=== PATIENT | male | born 1960 | race Caucasian/White ===

== ENCOUNTER 2016-11-04 11:36 | Emergency (ER) | payer MEDICAID ==
[~2016-11-04] VITALS: Wt 105.0 kg
[2016-11-04] MEDS ORDERED: SOD CHLORIDE 0.9% 1,000 ML IV STA (11:57)
[2016-11-04] MEDS ORDERED: DIPHTH/TET/ACEL PERTUSS (ADULT) 0.5 ML VIAL IM* ONE (12:00)
--- NOTE | 2016-11-04 13:04 | RADRPT ---
PROCEDURE: CT Brain without contrast. CLINICAL INDICATION: Trauma. TECHNIQUE: CT scan of the brain was performed on a multidetector high-resolution CT scan. Axial im aging was obtained of the brain without contrast administration. Coronal and sagittal reformatted i mages were obtained from the axial source images. Standard CT scan of the head without contrast prot ocols were performed. The total exam CTDI equals 45.01 mGy and the total exam DLP equals 810.25 mGy-cm. One or more of the following dose reduction techniques were used: - Automated exposure control. - Adjustment of the mA and/or kV according to patient size. Use of iterative reconstruction technique. COMPARISON: None. FINDINGS: Note that there is a large region of artifact extending through the mid to superior brain precluding optimal evaluation. Recommend repeat CT head without contrast for further evaluation. Note that the ventricular system and peripheral CSF spaces that can be clearly visualized are unremarkable. No ev idence of intracranial masses or hemorrhages with those portions of the brain that can be clearly vi sualized. Jc-white matter junction is unremarkable. There is chronic bilateral ethmoid , sphenoid and left frontal sinus disease. The mastoids are unremarkable. The bones of the calvarium are intact . IMPRESSION: 1. Extensive band artifact extending through the mid to superior brain precluding optimal evaluatio n. Recommend repeat CT head without contrast for further evaluation. 2. Those portions of the brain that can be clearly visualized demonstrate no evidence of intracrani al masses hemorrhages or midline shift. Addendum: Dr. Martino was telephoned this results on 11/04/2016 at 1255 hours. RPTAT:AAJJ Physician Jonathan Date Time Electronically viewed and signed by Physician Jonathan on 11/04/2016 13:04 BM/
--- NOTE | 2016-11-04 13:16 | RADRPT ---
PROCEDURE: CT cervical spine without contrast. CLINICAL INDICATION: Trauma TECHNIQUE: Axial imaging was obtained through the cervical spine using a multi-slice CT scanner. [facility] CT scan of the cervical spine without contrast protocols were performed. CTDI: 22.2 and DLP: 475.79. One or more of the following dose reduction techniques were used: - Automated exposure control. - Adjustment of the mA and/or kV according to patient size. Use of iterative reconstruction technique. COMPARISON: None. FINDINGS: There is no evidence of acute fractures or subluxations. The bony mineralization is normal. No focal bony blastic or lytic lesions. Posterior elements are intact. There is mild degenerate disease is C 3-4, moderate degenerate disease of the C4-5 and moderate to severe degenerate disease C5-6, C6-7, C 7-T1 and T1-T2 disc levels. There is degenerative enthesopathy involving the C3-T1 vertebral levels. There is osteophyte extending off the posterior superior C4 vertebral body impressing adjacent thec al sac and resulting in moderate central spinal canal stenosis. At the C3-4 and C4-5 disc level ther e is mild central spinal canal stenosis. At the C5-6 and C6-7 disc level there is moderate central s anthony canal stenosis. There is bilateral C3-4 through C6-7 neural foraminal narrowing. There is no e vidence of prevertebral soft tissue swelling. Those portions of the upper lung pleural and airway vi sualized are unremarkable. IMPRESSION: 1. No evidence of acute fractures or subluxations. 2. Extensive degenerative changes with central spinal canal stenosis and neural foraminal narrowing as described above. RPTAT:AAJJ Physician Jonathan Date Time Electronically viewed and signed by Physician Jonathan on 11/04/2016 13:16 BM/
[2016-11-04 13:21] LABS: BASOPHIL # 0.1 10^3/ul (0.0-0.1); BASOPHILS % 0.6 % (0.0-2.0); EOSINOPHILS # 0.3 10^3/ul (0.0-0.5); EOSINOPHILS % 3.5 % (0.0-7.0); HEMOGLOBIN 15.1 g/dl (14.0-18.0); LYMPHOCYTES # 2.1 10^3/ul (0.8-2.9); LYMPHOCYTES % 23.7 % (15.0-51.0); MEAN CORPUSCULAR HGB CONC 34.3 g/dl (32.0-37.0); MEAN CORPUSCULAR VOLUME 93.2 fl (82.0-101.0); MEAN PLATELET VOLUME 9.9 fl (7.4-10.4); MONOCYTE # 0.8 10^3/ul (0.3-0.9); MONOCYTES % 9.6 % (0.0-11.0); NEUTROPHIL # 5.4 10^3/ul (1.6-7.5); NEUTROPHILS % 62.3 % (39.0-77.0); PLATELET COUNT 171 10^3/UL (140-415); RED BLOOD COUNT 4.72 10^6/ul (4.70-6.10); RED CELL DISTRIBUTION WIDTH 12.7 % (11.5-14.5); WHITE BLOOD COUNT 8.7 10^3/ul (4.8-10.8)
[2016-11-04 13:24] LABS: ADD UMIC YES; UR ASCORBIC ACID NEGATIVE (NEGATIVE); UR BILIRUBIN (Dip) NEGATIVE (NEGATIVE); UR BLOOD (Dip) 1+ mg/dL (NEGATIVE); UR CLARITY CLEAR (CLEAR); UR COLOR COLORLESS (YELLOW); UR GLUCOSE (Dip) NEGATIVE (NEGATIVE); UR KETONES (Dip) NEGATIVE (NEGATIVE); UR LEUKOCYTE ESTERASE (Dip) NEGATIVE Leu/ul (NEGATIVE); UR NITRITE (Dip) NEGATIVE (NEGATIVE); UR RBC 0 /HPF (0-5); UR SPECIFIC GRAVITY (Dip) 1.002 (1.003-1.030); UR TOTAL PROTEIN (Dip) NEGATIVE (NEGATIVE); UR UROBILINOGEN (Dip) NEGATIVE (NEGATIVE)
[2016-11-04 13:51] LABS: BARBITURATES Negative (NEGATIVE); BENZODIAZEPINES Negative (NEGATIVE); CANNABINOIDS Negative (NEGATIVE); COCAINE Negative (NEGATIVE); OPIATES Negative (NEGATIVE)
[2016-11-04 13:56] LABS: ALANINE AMINOTRANSFERASE 58 IU/L (13-69); ALBUMIN 4.4 g/dl (3.3-4.9); ALBUMIN/GLOBULIN RATIO 1.29; ALKALINE PHOSPHATASE 59 IU/L (42-121); ANION GAP 16 (8-16); ASPARTATE AMINO TRANSFERASE 59 IU/L (15-46); BILIRUBIN,INDIRECT 0.3 mg/dl (0-1.1); BILIRUBIN,TOTAL 0.3 mg/dl (0.2-1.3); BLOOD UREA NITROGEN 8 mg/dl (7-20); CALCIUM 8.5 mg/dl (8.4-10.2); CARBON DIOXIDE 24 mmol/L (21-31); CHLORIDE 108 mmol/L (97-110); CREATININE 0.67 mg/dl (0.61-1.24); GLUCOSE 84 mg/dl (70-220); POTASSIUM 3.8 mmol/L (3.5-5.1); SODIUM 144 mmol/L (135-144); TOTAL PROTEIN 7.8 g/dl (6.1-8.1)
[2016-11-04 13:57] LABS: ACETAMINOPHEN < 10.0 ug/ml (10.0-30.0); SALICYLATE < 1.0 mg/dl (5.0-30.0)
--- NOTE | 2016-11-04 15:29 | ERD ---
ER Documentation Chief Complaint Date/Time DATE: 11/04/16 TIME: 15:26 Chief Complaint ALCOHOL INTOXICATION AND POSSIBLE FALL WITH SCALP LAC, NO LOC PER EMS HPI Patient is a 56-year-old male who presents altered. Please note the history and physical exam is limited secondary to the patient's altered mental status. The patient had one previous visit to the ER in 2012. The patient was brought in by ambulance. He had a fall. He was drinking alcohol. He is unable to give a good history. ROS All systems reviewed and are negative except as per history of present illness. Medications Home Meds No Active Prescriptions or Reported Meds Allergies Allergies: Coded Allergies: Penicillins (Unverified Allergy, Unknown, 09/21/12) PMhx/Soc Medical and Surgical Hx: pt denies Surgical Hx History of Surgery: No Anesthesia Reaction: No Hx Neurological Disorder: No Hx Respiratory Disorders: No Hx Cardiac Disorders: No Hx Psychiatric Problems: No Hx Alcohol Use: Yes Hx Substance Use: No Hx Tobacco Use: Yes Smoking Status: Current every day smoker FmHx Unable to obtain Physical Exam Vitals Vital Signs Date Time Temp Pulse Resp B/P Pulse Ox O2 Delivery O2 Flow Rate FiO2 11/04/16 15:06 98.5 79 18 126/71 99 Room Air 11/04/16 12:32 98.8 88 21 138/76 98 Physical Exam Const: Confused Head: Abrasion to the posterior scalp Eyes: Normal Conjunctiva ENT: Normal External Ears, Nose and Mouth. Neck: Full range of motion..~ No meningismus. Resp: Clear to auscultation bilaterally Cardio: Regular rate and rhythm, no murmurs Abd: Soft, non tender, non distended. Normal bowel sounds Skin: No petechiae or rashes Back: No midline or flank tenderness Ext: No cyanosis, or edema Neur: Awake but confused at this time and appears intoxicated Result Diagram: 11/04/16 1310 11/04/16 1310 Results 24 hrs Laboratory Tests Test 11/04/16 13:10 11/04/16 13:14 White Blood Count 8.710^3/ul Red Blood Count 4.7210^6/ul Hemoglobin 15.1g/dl Hematocrit 44.0% Mean Corpuscular Volume 93.2fl Mean Corpuscular Hemoglobin 32.0pg Mean Corpuscular Hemoglobin Concent 34.3g/dl Red Cell Distribution Width 12.7% Platelet Count 62052^3/UL Mean Platelet Volume 9.9fl Neutrophils % 62.3% Lymphocytes % 23.7% Monocytes % 9.6% Eosinophils % 3.5% Basophils % 0.6% Nucleated Red Blood Cells % 0.0/100WBC Neutrophils # 5.410^3/ul Lymphocytes # 2.110^3/ul Monocytes # 0.810^3/ul Eosinophils # 0.310^3/ul Basophils # 0.110^3/ul Nucleated Red Blood Cells # 0.010^3/ul Sodium Level 144mmol/L Potassium Level 3.8mmol/L Chloride Level 108mmol/L Carbon Dioxide Level 24mmol/L Anion Gap 16 Blood Urea Nitrogen 8mg/dl Creatinine 0.67mg/dl Glucose Level 84mg/dl Calcium Level 8.5mg/dl Total Bilirubin 0.3mg/dl Direct Bilirubin 0.00mg/dl Indirect Bilirubin 0.3mg/dl Aspartate Amino Transf (AST/SGOT) 59IU/L Alanine Aminotransferase (ALT/SGPT) 58IU/L Alkaline Phosphatase 59IU/L Total Protein 7.8g/dl Albumin 4.4g/dl Globulin 3.40g/dl Albumin/Globulin Ratio 1.29 Salicylates Level < 1.0mg/dl Acetaminophen Level < 10.0ug/ml Ethyl Alcohol Level 289.0mg/dl Urine Color COLORLESS Urine Clarity CLEAR Urine pH 5.0 Urine Specific [place] 1.002 Urine Ketones NEGATIVEmg/dL Urine Nitrite NEGATIVEmg/dL Urine Bilirubin NEGATIVEmg/dL Urine Urobilinogen NEGATIVEmg/dL Urine Leukocyte Esterase NEGATIVELeu/ul Urine Microscopic RBC 0/HPF Urine Microscopic WBC 0/HPF Urine Hemoglobin 1+mg/dL Urine Glucose NEGATIVEmg/dL Urine Total Protein NEGATIVEmg/dl Urine Opiates Screen Negative Urine Barbiturates Negative Urine Amphetamines Screen Negative Urine Benzodiazepines Screen Negative Urine Cocaine Screen Negative Urine Cannabinoids Negative Current Medications Medications (Trade) Dose Ordered Sig/Ned Route PRN Reason Start Time Stop Time Status Last Admin Dose Admin Sodium Chloride (NS) 1,000 ml @ 1,000 mls/hr Q1H STAT IV 11/04/16 11:57 11/04/16 12:56 DC 11/04/16 13:23 Diphtheria/ Tetanus/Acell Pertussis (Adacel) 0.5 ml ONCE ONCE IM* 11/04/16 12:00 11/04/16 12:01 DC 11/04/16 13:24 Procedures/MDM CT brain with limited secondary to motion artifact but there was no obvious bleed per radiology. CT cervical spine negative per radiology. Patient is a 56-year-old male presents with acute encephalopathy. The patient was found to have an elevated alcohol level which is likely the cause of his encephalopathy. He had a full workup including CT head and cervical spine as well as laboratory studies. The patient will be discharged once he is clinically sober. He was monitored for signs of airway decompensation and he did not require intubation. He will need to follow-up with the primary care doctor within 24-48 hours and can return if symptoms worsen. Critical Care: Time: 35 minutes excluding all billable procedures. Treatments/Evaluations: Close monitoring and treatment of unstable vital signs, cardiorespiratory, and neurologic status, while maintaining tight balance of fluid, respiratory, and cardiac interventions. Departure Diagnosis: Primary Impression: Acute encephalopathy Additional Impressions: Abrasion Alcoholic intoxication Complication of substance-induced condition: with delirium Qualified Code: F10.921 - Alcohol intoxication with delirium Condition: Fair Patient Instructions: Abrasion, Alcohol Intoxication Referrals: [facility] YOU HAVE RECEIVED A MEDICAL SCREENING EXAM AND THE RESULTS INDICATE THAT YOU DO NOT HAVE A CONDITION THAT REQUIRES URGENT TREATMENT IN THE EMERGENCY DEPARTMENT. FURTHER EVALUATION AND TREATMENT OF YOUR CONDITION CAN WAIT UNTIL YOU ARE SEEN IN YOUR DOCTORS OFFICE WITHIN THE NEXT 1-2 DAYS. IT IS YOUR RESPONSIBILITY TO MAKE AN APPOINTMENT FOR FOLOW-UP CARE. IF YOU HAVE A PRIMARY DOCTOR --you should call your primary doctor and schedule an appointment IF YOU DO NOT HAVE A PRIMARY DOCTOR YOU CAN CALL OUR PHYSICIAN REFERRAL HOTLINE AT IF YOU CAN NOT AFFORD TO SEE A PHYSICIAN YOU CAN CHOSE FROM THE FOLLOWING [facility] [address] [facility]. [facility] [address] [facility]. [facility] [address] [facility] [facility] [address] [facility]. [facility] [address] [facility]. [facility]. [address] Additional Instructions: Call your primary care doctor TOMORROW for an appointment during the next 1-2 days.See the doctor sooner or return here if your condition worsens before your appointment time. JOSE EDUARDO PEÑA MD Nov 04, 2016 15:29
[2016-11-04 18:08] VITALS: BP 122/70; PULSE 79; RESP 18; TEMP 98
== END 2016-11-04 18:18 | disposition home or self-care (01) ==
LOC: E/R 11:36
DX: G93.40 Encephalopathy, unspecified (principal); F10.921 Alcohol use, unspecified with intoxication delirium; S00.01XA Abrasion of scalp, initial encounter; F17.210 Nicotine dependence, cigarettes, uncomplicated; R51 Headache; W18.39XA Other fall on same level, initial encounter; Y92.9 Unspecified place or not applicable; Z23 Encounter for immunization
CPT/HCPCS: 36415; 70450; 72125; 80053; 80306; 80307; 81001; 85025; 90471; 90715; J7030; Z7502

== ENCOUNTER 2016-12-27 11:16 | Emergency (ER) | payer MEDICAID ==
[~2016-12-27] VITALS: Ht 165.1 cm; Wt 100.0 kg
[2016-12-27 11:24] VITALS: Ht 165.1 cm; Wt 100.0 kg
--- NOTE | 2016-12-27 13:03 | RADRPT ---
PROCEDURE: CT Brain without contrast. CLINICAL INDICATION: Headaches. Neurologic deficit TECHNIQUE: A CT of the brain was performed on multidetector high-resolution CT scanner utilizing a xial sections from the skull base through the vertex without contrast. One or more of the following dose reduction techniques were used: Automated exposure control, Adjustment of the mA and/or kV acc ording to patient size, and/or use of iterative reconstruction technique. DICOM images are available . DOSE: CTDI = 45 mGy and the DLP = 720 mGy-cm. COMPARISON: Head CT 11/04/2016 FINDINGS: No acute intracranial hemorrhage, significant mass effect or midline shift. The heller-white different iation is grossly preserved. Vascular calcifications. Prominence of the cortical sulci and ventricle s are related to mild cerebral volume loss. Moderate paranasal sinus mucosal thickening. IMPRESSION: No acute intracranial hemorrhage or mass effect. Mild volume loss and intracranial atherosclerosis. RPTAT: AA .Candido Beltre MD, MD Date Time Electronically viewed and signed by .Candido Beltre MD, MD on 12/27/2016 13:03 .T/
--- NOTE | 2016-12-27 15:02 | ERD ---
ER Documentation Chief Complaint Chief Complaint etoh HPI This is a 56-year-old male who is found intoxicated sleeping on the curb in the street. Bystanders called EMS to pick him up. The patient admits to alcohol use last night. Has no physical complaints. The patient denies falling. There is very limited history because he is intoxicated and very sleepy. ROS All systems reviewed and are negative except as per history of present illness. Medications Home Meds No Active Prescriptions or Reported Meds Allergies Allergies: Coded Allergies: Penicillins (Unverified Allergy, Unknown, 12/27/16) PMhx/Soc History of Surgery: No Anesthesia Reaction: No Hx Neurological Disorder: No Hx Respiratory Disorders: No Hx Cardiac Disorders: No Hx Psychiatric Problems: No Hx Alcohol Use: Yes Hx Substance Use: No Hx Tobacco Use: Yes Smoking Status: Smoker,current status unk FmHx Family History: No coronary disease Physical Exam Vitals Vital Signs Date Time Temp Pulse Resp B/P Pulse Ox O2 Delivery O2 Flow Rate FiO2 12/27/16 13:51 74 20 134/86 99 Room Air 12/27/16 11:24 98.1 64 18 148/78 99 Physical Exam Const: Well-developed, well-nourished, disheveled, smells of alcohol Head: Atraumatic, normocephalic Eyes: Normal Conjunctiva, PERRLA, EOMI, normal sclera, no nystagmus ENT: Normal External Ears, Nose and Mouth, moist mucus membranes. Neck: Full range of motion. No meningismus, no lymphadenopathy. Resp: Clear to auscultation bilaterally, no wheezing, rhonchi, rales Cardio: Regular rate and rhythm, no murmurs, S1 S2 present Abd: Soft, non tender x 4, non distended. Normal bowel sounds, no guarding or rebound, no pulsitile abdominal masses or bruits Skin: No petechiae or rashes, no ecchymosis , no maculopapular rash Back: No midline or flank tenderness Ext: No cyanosis, or edema, FROM x 4, normal inspection, neurovascularly intact x 4 Neur: Sleepy but arousable follows basic commands, STR 5/5 x 4, sensation intact x 4, no focal findings, cerebellum intact Psych: Unable to fully assess Procedures/MDM MR #: [id number] DOS: 12/27/16 1137 Ordering MD: ELO ELIAS DO Location: E/R Room/Bed: PROCEDURE: CT Brain without contrast. CLINICAL INDICATION: Headaches. Neurologic deficit TECHNIQUE: A CT of the brain was performed on multidetector high-resolution CT scanner utilizing axial sections from the skull base through the vertex without contrast. One or more of the following dose reduction techniques were used: Automated exposure control, Adjustment of the mA and/or kV according to patient size, and/or use of iterative reconstruction technique. DICOM images are available. DOSE: CTDI = 45 mGy and the DLP = 720 mGy-cm. COMPARISON: Head CT 11/04/2016 FINDINGS: No acute intracranial hemorrhage, significant mass effect or midline shift. The heller-white differentiation is grossly preserved. Vascular calcifications. Prominence of the cortical sulci and ventricles are related to mild cerebral volume loss. Moderate paranasal sinus mucosal thickening. IMPRESSION: No acute intracranial hemorrhage or mass effect. Mild volume loss and intracranial atherosclerosis. RPTAT: AA .Candido Beltre MD, MD Date Time Electronically viewed and signed by .Candido Beltre MD, MD on 12/27/2016 13:03 .T/ CC: ELO ELIAS DO Patient will be observed in the ER. When the patient is awake and alert coherent and can ambulate in the ED without any difficulty we will discharge him home Departure Diagnosis: Primary Impression: Alcoholic intoxication Complication of substance-induced condition: with unspecified complication Qualified Code: F10.929 - Alcoholic intoxication with complication Condition: Stable Patient Instructions: Alcohol Intoxication Referrals: DOCTOR,NOT ON STAFF (PCP) ELO ELIAS DO Dec 27, 2016 15:02
[2016-12-27 15:27] VITALS: BP 140/71; PULSE 78; RESP 18; TEMP 98.6
== END 2016-12-27 15:42 | disposition home or self-care (01) ==
LOC: E/R 11:16
DX: F10.929 Alcohol use, unspecified with intoxication, unspecified (principal); R51 Headache; R40.2122 Coma scale, eyes open, to pain, at arrival to emergency department; R40.2252 Coma scale, best verbal response, oriented, at arrival to emergency department; R40.2352 Coma scale, best motor response, localizes pain, at arrival to emergency department; Z87.891 Personal history of nicotine dependence
CPT/HCPCS: 70450; Z7502

== ENCOUNTER 2017-01-11 18:50 | Emergency (ER) | payer MEDICAID ==
[~2017-01-11] VITALS: Ht 180.3 cm; Wt 136.4 kg
[2017-01-11 19:00] VITALS: Ht 180.3 cm; Wt 136.4 kg
--- NOTE | 2017-01-11 22:54 | ERD ---
ER Documentation Chief Complaint Chief Complaint BIBA 07,ETOH intoxication,drank 40 oz beer,c/o abd pain HPI 56-year-old male presenting to the ER after drinking 40 ounces of beer. He is clearly intoxicated. He is complaining of mild epigastric pain as well. No nausea, vomiting, fever, diarrhea. He denies any hemoptysis or hematochezia. Patient keeps stating that he just wants a place to sleep. Otherwise history is limited as the patient is uncooperative and intoxicated. ROS Limited secondary to intoxication Medications Home Meds No Active Prescriptions or Reported Meds Allergies Allergies: Coded Allergies: Penicillins (Unverified Allergy, Unknown, 01/11/17) PMhx/Soc History of Surgery: No Anesthesia Reaction: No Hx Neurological Disorder: No Hx Respiratory Disorders: No Hx Cardiac Disorders: No Hx Psychiatric Problems: No Hx Alcohol Use: Yes Hx Substance Use: No Hx Tobacco Use: Yes Smoking Status: Current every day smoker FmHx Family History: other (Unable to obtain) Physical Exam Vitals Vital Signs Date Time Temp Pulse Resp B/P Pulse Ox O2 Delivery O2 Flow Rate FiO2 01/11/17 19:00 98.0 64 18 125/67 97 Physical Exam Const: Appears intoxicated, disheveled, no apparent distress Head: Atraumatic Eyes: Normal Conjunctiva PERRLA, EOMI ENT: Normal External Ears, Nose and Mouth. Neck: Full range of motion..~ No meningismus. Resp: Clear to auscultation bilaterally Cardio: Regular rate and rhythm, no murmurs Abd: Soft, non tender, non distended. Timmons sign. No McBurney's point tenderness. Normal bowel sounds Skin: No petechiae or rashes Back: No midline or flank tenderness Ext: No cyanosis, or edema Neur: Awake and alert, speech normal, moving all extremities, gait steady Psych: Normal Mood and Affect Procedures/MDM Patient presented with altered mental status. Vitals were all within normal limits. Patient maintaining airway. Based on EMS report and exam, patients AMS is likely related to alcohol or drug intoxication. I have a low suspicion for serious metabolic or electrolyte derangement, intracranial hemorrhage, acute infectious process, meningitis/encephalitis, or CVA. Patient was observed for 5 hours in the ER with serial examinations and mental status evaluations. The patients symptoms have not completely resolved and not yet safe for discharge.. Patient will continue to be observed in the department for improvement of symptoms and mental status. Patient will be signed out to the oncoming ED physician, who will reevaluate the patient and decide on final disposition. Departure Diagnosis: Primary Impression: Alcoholic intoxication Complication of substance-induced condition: uncomplicated Qualified Code: F10.920 - Alcoholic intoxication without complication Condition: SHARON Krishna MD Jan 11, 2017 22:54
[2017-01-12 05:06] VITALS: BP 130/71; PULSE 81; RESP 18; TEMP 98
== END 2017-01-12 05:14 | disposition home or self-care (01) ==
LOC: E/R 18:50
DX: F10.920 Alcohol use, unspecified with intoxication, uncomplicated (principal); F17.210 Nicotine dependence, cigarettes, uncomplicated
CPT/HCPCS: 99283